=== PATIENT | female | born 1995 | race Caucasian/White ===

== ENCOUNTER 2020-10-26 10:40 | Inpatient (IN) ==
[~2020-10-26 10:40] MED LIST: ONDANSETRON 4 MG TAB.RAPDIS PO PRN; OXYTOCIN/0.9 % SODIUM CHLORIDE 30 UNITS/500 ML BAG IV ONE; PENICILLIN G POTASSIUM 5 MILLIONUNT in DEXTROSE 5 % IN WATER 100 ML IV ONE; RINGER'S SOLUTION,LACTATED 1,000 ML IV ONE
[2020-10-26] MEDS: PENICILLIN G POTASSIUM 2.5 MILLIONUNT in DEXTROSE 5 % IN WATER 100 ML IV SCH ×6 (15:44→16:00)
[2020-10-26] MEDS ORDERED: DEXTROSE 5%-LACTATED RINGERS 1,000 ML IV PRN (16:44)
[2020-10-26] MEDS ORDERED: RINGER'S SOLUTION,LACTATED 1,000 ML IV PRN (16:45)
--- NOTE | 2020-10-26 17:03 | HP ---
Chief Complaint - Chief Complaint Date of Service: 10/26/20 Time of Service: 16:45 Chief Complaint: elective induction of labor History of Present Illness: 25 yo at 40w1d admitted for elective induction of labor with favorable cervix. This uncomplicated. Rh positive Rubella immune GBS positive Medical History (Last Reviewed 10/26/20 @ 17:06 by Keven Bhatti DO) Patient new to facility (Acute) 26wk transfer from [place], [place]. Scoliosis Wears glasses Seizure had fibrile as a baby, then one in 2013 after oral surgery. Surgical History: Surgical History (Last Reviewed 10/26/20 @ 17:06 by Keven Bhatti DO) History of oral surgery Onset Date: ~2012 teeth removal- had seizure after procedure. Family History: Family History (Last Reviewed 10/26/20 @ 17:06 by Keven Bhatti DO) Mother Alive and well Father Alive and well Grandfather Heart disease Grandmother Breast cancer, Onset Age: 60 Social History: (Last Reviewed 10/26/20 @ 17:06 by Keven Bhatti DO) Social History: Marital status: household members: spouse current occupational status: employed Highest level of school completed/degree received: high school graduate Tobacco: Smoking Status: Never smoker Alcohol: alcohol intake: never Substance Use: substance use type: does not use Dietary Habits: caffeine: Yes caffeine comment: 1-2 a day Exercise: Physical activity type: none Review Of Systems (GEN) - Review of Systems Generalized/Overall Review: Present: No Symptoms Reported EENTM: Present: No Symptoms Reported Respiratory: Present: No Symptoms Reported Cardiac: Present: No Symptoms Reported Abdominal: Present: No Symptoms Reported Genitourinary: Present: No Symptoms Reported Musculoskeletal: Present: No Symptoms Reported Neurological: Present: No Symptoms Reported Skin: Present: No Symptoms Reported Endocrine: Present: No Symptoms Reported Allergies/Adverse Reactions: Allergies Allergy/AdvReac Type Severity Reaction Status Date / Time No Known Drug Allergies Allergy Verified 10/26/20 13:31 Sunscreen Allergy Intermediate rash Uncoded 10/26/20 13:31 Home Medications: HOME MEDICATIONS prenat.vits,ellis,[id number] 1 tab PO DAILY 07/16/20 [Last Taken Unknown] B-complex with vitamin C 1 tab PO DAILY 07/21/20 [Last Taken Unknown] cholecalciferol (vitamin D3) 100 mcg (4,000 unit) capsule 100 mcg PO DAILY 07/21/20 [Last Taken Unknown] Exam - Exam Vital Signs: Vital Signs - Last Taken Temp 37 C 10/26/20 13:15 Pulse 103 H 10/26/20 13:15 Resp 16 10/26/20 13:15 BP 136/86 10/26/20 13:15 Pulse Ox 100 10/26/20 13:15 Constitutional: Present: Alert, Oriented x3, Cooperative, No distress ENT Exam: Present: hearing grossly normal Respiratory: Present: lungs clear, no respiratory distress Cardiovascular/Chest: Present: normal peripheral pulses, regular rate, rhythm, no edema Abdomen: Present: soft, nontender, no rebound tenderness, other - Gravid /Rectal: Present: Other - Cervix 4/50/-2 Assessment/Plan - Assessment/Plan (1) Elective induction of labor planned Assessment: Pitocin induction of labor. Epidural PRN. IV PCN per GBS protocol. Problem: Acute (2) Group beta Strep positive Problem: Acute
--- NOTE | 2020-10-26 17:05 | PN ---
Progess Note - Interim Date: 10/26/20 Time: 17:03 Narrative: 10/26/20 17:03 Patient rating contractions moderate Vital signs stable. Pitocin at 10 mu/min. FHT: 140 baseline, reassuring contractions q 2-3 min Cervix: 4/80/-2, AROM-clear Impression: Intrauterine at 40 1/7 weeks induction of labor Plan: Continue present plan
[2020-10-26] MEDS ORDERED: PENICILLIN G POTASSIUM 2.5 MILLIONUNT in DEXTROSE 5 % IN WATER 100 ML IV SCH ×2 (17:40)
--- NOTE | 2020-10-26 18:05 | PN ---
Progess Note - Interim Date: 10/26/20 Time: 18:02 Narrative: 10/26/20 18:02 Patient feeling more pressure Vital signs stable -occasional elevated blood pressure during contractions. Pitocin at 8 mu/min. FHT: 145 baseline, reassuring contractions q 1-2 min Cervix: 8/100/-1 Impression: Intrauterine at 40 1/7 weeks in labor. GBS carrier-status post 2 doses of IV penicillin. Plan: We will decrease Pitocin to 6 milliunits/min and anticipate normal spontaneous vaginal delivery soon.
[2020-10-26] MEDS ORDERED: oxyCODONE HCL/ACETAMINOPHEN 1 TAB TABLET PO PRN (19:22)
[2020-10-26] MEDS ORDERED: BENZOCAINE/MENTHOL 81 SPRAY CAN TP PRN (19:22)
[2020-10-26] MEDS ORDERED: ACETAMINOPHEN 325 MG TABLET PO PRN (19:22)
[2020-10-26] MEDS ORDERED: SENNOSIDES 8.6 MG TABLET PO PRN (19:22)
[2020-10-26] MEDS ORDERED: OXYTOCIN/0.9 % SODIUM CHLORIDE 30 UNITS/500 ML BAG IV ONE (19:22)
[2020-10-26] MEDS ORDERED: BISACODYL 10 MG SUPP.RECT RC PRN (19:22)
[2020-10-26] MEDS ORDERED: GLYCERIN/WITCH HAZEL LEAF 40 APPL BOX TP PRN (19:22)
[2020-10-26] MEDS ORDERED: HYDROCORTISONE 30 APPL TUBE TP PRN (19:22)
--- NOTE | 2020-10-26 19:24 | OR ---
Operative Report - Dictated Report Narrative: Spontaneous vaginal delivery of vigorously crying viable male at 1904 on 10/26/2020 with Apgars 9 and 9, weighing 3862 g and TALYA position with nuchal cord x2. Cord clamping delayed approximately 1 minute Placenta delivered complete, intact, with three vessel cord Estimated blood loss: 150 mL Anesthesia: None Lacerations: 1 cm first-degree vaginal laceration with no repair needed History for History for Definition: * The number of deliveries resulting in a live the patient experienced prior to current hospitalization * The previous delivery of live twins or any live multiple gestation is considered one live event. *If primagravida or nulliparous is documented select zero for the number of previous live births. Live Events: Live Events: 1
[2020-10-26] MEDS: DOCUSATE SODIUM 100 MG CAPSULE PO SCH (21:03)
[2020-10-27] MEDS: VITAMIN B COMP W-C 1 TAB TABLET PO SCH ×2 (07:43→12:54)
[2020-10-27] MEDS: CHOLECALCIFEROL 1,000 UNIT CAPSULE PO SCH ×2 (07:43→12:54)
[2020-10-27] MEDS: IBUPROFEN 800 MG TABLET PO PRN ×2 (07:44→20:38)
[2020-10-27] MEDS: DOCUSATE SODIUM 100 MG CAPSULE PO SCH ×3 (07:44→20:38)
--- NOTE | 2020-10-27 11:34 | PN ---
Subjective - Date and Time Seen Date: 10/27/20 Time: 07:20 Objective - Vitals Vitals: Last Vital Signs Temp 36.5 C 10/27/20 07:40 Pulse 88 10/27/20 07:40 Resp 18 10/27/20 07:40 BP 136/76 10/27/20 07:40 Pulse Ox 98 10/27/20 07:40 Patient denies complaints. Lochia wnl abdomen - soft, nontender Uterus -firm, at umbilicus - 1 No calf tenderness Impression: day #1 - s/p spontaneous vaginal delivery. Plan: Continue routine care Assessment/Plan - Problems/Diagnosis (1) Elective induction of labor planned Problem: Resolved (2) Group beta Strep positive Problem: Resolved
[2020-10-27] MEDS: PRENATAL VITS96/IRON FUM/FOLIC 1 TAB TABLET PO SCH (12:54)
--- NOTE | 2020-10-28 02:39 | DS ---
OB Discharge Summary (1) Elective induction of labor planned Status: Resolved (2) Group beta Strep positive Status: Resolved (3) Normal vaginal delivery Status: Acute Delivery Date: 10/26/20 Delivery Time: 19:04 :: 2 Para:: 2 Gestational weeks:: 40 Gestational days:: 1 Intrapartum Procedures: Spontaneous Vaginal Delivery, Delivered /OP Complications: No Complications Discharge Diagnosis: Term -Delivered, Rubella Immune - Discharge Information Date of Discharge: 10/28/20 Hospital Course: 25-year-old G2 now P2 admitted at 40w1d for elective induction of labor. Her labor, delivery, and course were uncomplicated. She was discharged to home with routine discharge instructions. Discharge Location: Home Disposition: Home self-care Condition: Good Activity on Discharge:: Activity as tolerated, Pelvic Rest Discharge Diet: General/regular food Additional Patient Instructions (free text): Yamini will follow up with Dr. Bhatti on Continue to take your vitamins one daily. Rest when your baby rests. Drink plenty of fluids, eat a lot of fruits and vegetables and lean meat. Maxi will follow up with Dr. German weight was 8# 8.2 oz. Always use safe sleeping practices, always place Maxi on his back to sleep in his own bed, no co-sleeping, no bumper pad, pillows, heavy blankets or stuffed animals in sleeping area. Nurse your baby every 2-3 hours and when showing feeding cues. Thank you for choosing [facility] for your special event, if you have any concerns or questions or concerns please call the Birth[facility] [phone], [facility] [phone] or [facility] [phone]. Prescriptions (Any new or edited meds): Ferrous Sulfate 325 mg PO DAILY #60 tablet Ibuprofen [Motrin] 200 - 800 mg PO Q6H PRN #100 tab PRN Reason: Pain Complete Home Medications List: Complete Home Medication List: prenat.vits,ellis,[id number] 1 tab PO DAILY 07/16/20 B-complex with vitamin C 1 tab PO DAILY 07/21/20 cholecalciferol (vitamin D3) 100 mcg (4,000 unit) capsule 100 mcg PO DAILY 07/21/20 Ferrous Sulfate 325 mg PO DAILY #60 tablet 10/28/20 Ibuprofen [Motrin] 200 - 800 mg PO Q6H PRN #100 tab 10/28/20 - Plan Discharge to:: Home Follow up in office in:: 3-4 weeks - Information Weight (Grams): 3,862 Infant Sex: Male Score 1 min: 9 Score 5 min: 9 Complications: Decreased Variability Other Complications: LGA
[2020-10-28] MEDS: CHOLECALCIFEROL 1,000 UNIT CAPSULE PO SCH (08:06)
[2020-10-28] MEDS: IBUPROFEN 800 MG TABLET PO PRN (08:07)
[2020-10-28] MEDS: DOCUSATE SODIUM 100 MG CAPSULE PO SCH (08:07)
[2020-10-28] MEDS: VITAMIN B COMP W-C 1 TAB TABLET PO SCH (08:07)
[2020-10-28] MEDS: PRENATAL VITS96/IRON FUM/FOLIC 1 TAB TABLET PO SCH (08:07)
--- NOTE | 2020-10-28 08:35 | PN ---
Subjective - Date and Time Seen Date: 10/28/20 Time: 08:35 Objective - Vitals Vitals: Last Vital Signs Temp 36.2 C 10/28/20 04:10 Pulse 81 10/28/20 04:10 Resp 16 10/28/20 04:10 BP 115/72 10/28/20 04:10 Pulse Ox 98 10/28/20 04:10 Patient denies complaints. Breast-feeding Lochia wnl abdomen - soft, nontender Uterus -firm, at umbilicus - 2 No calf tenderness Impression: day #2 - s/p spontaneous vaginal delivery. Plan: Routine discharge instructions Assessment/Plan - Problems/Diagnosis (1) Elective induction of labor planned Problem: Resolved (2) Group beta Strep positive Problem: Resolved (3) Normal vaginal delivery Problem: Acute
[2020-10-28 10:08] VITALS: BP 115/85
== END 2020-10-28 11:30 | disposition home or self-care (01) | DRG 807 ==
LOC: OB 13:00 → MS 10-27 14:16
PROVIDERS: ADMIT Obstetrics & Gynecology; ATTEND Obstetrics & Gynecology